=== PATIENT | female | born 1965 | race African-American/Black ===

== ENCOUNTER 2018-02-09 02:03 | Emergency (ER) | payer BC ==
[~2018-02-09] VITALS: Ht 167.6 cm; Wt 118.0 kg
[2018-02-09] MEDS ORDERED: KETOROLAC 60MG/2ML VIAL IM STA (05:34)
[2018-02-09 06:17] LABS: BASOPHILS % 0.7 % (0.0-2.0); EOSINOPHILS % 0.5 % (0.0-5.0); HEMATOCRIT. 37.7 % (36.0-48.0); LYMPHOCYTES % 17.8 % (20.0-50.0); MEAN CORPUSCULAR HEMOGLOBIN 31.4 pg (28.0-32.0); MEAN CORPUSCULAR VOLUME 90.5 fL (81.0-99.0); MEAN PLATELET VOLUME 7.6 fl (7.4-10.4); MONOCYTES % 10.6 % (2.0-8.0); NEUTROPHILS % 70.4 % (40.0-76.0); PLATELET 270 x1000/uL (130-400); RED BLOOD CELL COUNT 4.16 mill/uL (4.2-5.4); RED CELL DISTRIBUTION WIDTH 13.4 % (11.6-14.6)
[2018-02-09 06:17] LABS: CLARITY URINE CLOUDY (CLEAR); COLOR URINE YELLOW (YELLOW); KETONES URINE NEGATIVE (NEGATIVE); LEUKOCYTE ESTERASE URINE NEGATIVE (NEGATIVE); NITRITE URINE NEGATIVE (NEGATIVE); OCCULT BLOOD URINE NEGATIVE (NEGATIVE); PH URINE 6.5 (4.5-8.0); PROTEIN URINE NEGATIVE (NEGATIVE); SPECIFIC GRAVITY URINE 1.014 (1.005-1.030); UROBILINOGEN URINE 0.2 E.U./dL (0.2-1.0)
[2018-02-09 06:30] LABS: CHLORIDE 104 mEq/L (98-107)
[2018-02-09] MEDS ORDERED: DIAZEPAM 5 MG TABLET PO ONE (10:45)
[2018-02-09 10:56] VITALS: BP 156/91
== END 2018-02-09 11:18 | disposition home or self-care (01) ==
LOC: ER 02:03
DX: M54.31 Sciatica, right side (principal); N39.0 Urinary tract infection, site not specified; I10 Essential (primary) hypertension
CPT/HCPCS: 36415; 72100; 80053; 81003; 81025; 85025; 96372; 99285; J1885; Z7610